=== PATIENT | female | born 1980 | race Caucasian/White ===

== ENCOUNTER 2017-06-25 08:10 | Emergency (ER) | payer MEDICARE ==
[~2017-06-25] VITALS: Ht 162.6 cm; Wt 70.3 kg
[2017-06-25] MEDS ORDERED: PROZAC20 MG PO (08:20)
[2017-06-25] MEDS ORDERED: ZYRTEC10 M3 PO (08:20)
[2017-06-25] MEDS ORDERED: LEVOTHYROXINE50 MCG PO (08:21)
[2017-06-25] MEDS ORDERED: NORCO 5-325 TA1 EACH PO (08:46)
== END 2017-06-25 08:55 | disposition home or self-care (01) ==
LOC: ED 08:10
DX: S92.351A Displaced fracture of fifth metatarsal bone, right foot, initial encounter for closed fracture (principal); Z88.0 Allergy status to penicillin; Z91.040 Latex allergy status; Z79.899 Other long term (current) drug therapy; X50.1XXA Overexertion from prolonged static or awkward postures, initial encounter; Y93.9 Activity, unspecified
CPT/HCPCS: 73630; 99283